=== PATIENT | male | born 1960 | race Caucasian/White ===

== ENCOUNTER 2017-07-18 23:15 | Emergency (ER) | payer MEDICAID ==
[~2017-07-18] VITALS: Ht 180.3 cm; Wt 95.4 kg
[2017-07-18] MEDS ORDERED: OXYcodone/APAP 5/325MG TABLET ONE (23:45)
[2017-07-18] MEDS ORDERED: LIDOCAINE 1%, 10ML ONE (23:56)
[2017-07-19] MEDS ORDERED: OXYcodone/APAP 5/325MG TABLET PO ONE
[2017-07-19] MEDS ORDERED: LIDOCAINE 1%, 10ML INFIL ONE
[2017-07-19] MEDS ORDERED: DIPH,PERTUSS(ACELL),TET VAC/PF 0.5 ML IM-VACC ONE ×2 (00:55→01:00)
[2017-07-19 01:19] VITALS: BP 125/91
[2017-07-20] MEDS ORDERED: SULF1TAB23 PO (23:40)
[2017-07-20] MEDS ORDERED: NAPR-856 PO (23:40)
== END 2017-07-19 01:20 | disposition home or self-care (01) ==
LOC: ED 07-19 01:05
DX: L03.012 Cellulitis of left finger (principal); L02.512 Cutaneous abscess of left hand; S69.82XA Other specified injuries of left wrist, hand and finger(s), initial encounter; X58.XXXA Exposure to other specified factors, initial encounter; Y93.89 Activity, other specified; Y92.69 Other specified industrial and construction area as the place of occurrence of the external cause; Y99.8 Other external cause status
CPT/HCPCS: 10060; 90471; 90715; 99284

== ENCOUNTER 2017-07-19 13:25 | Emergency (ER) | payer MEDICAID ==
[~2017-07-19] VITALS: Ht 180.3 cm; Wt 97.4 kg
[2017-07-19] MEDS ORDERED: KETOROLAC 30 MG/1 ML ONE (14:40)
[2017-07-19] MEDS ORDERED: KETOROLAC 30 MG/1 ML IM ONE (15:00)
[2017-07-19 15:15] VITALS: BP 142/95
[2017-07-20] MEDS ORDERED: NAPR-856 PO (23:40)
[2017-07-20] MEDS ORDERED: SULF1TAB23 PO (23:40)
== END 2017-07-19 15:16 | disposition home or self-care (01) ==
LOC: ED 15:10
DX: G89.11 Acute pain due to trauma (principal); M79.645 Pain in left finger(s); W22.8XXA Striking against or struck by other objects, initial encounter; Y93.89 Activity, other specified; Y92.89 Other specified places as the place of occurrence of the external cause; Y99.8 Other external cause status
CPT/HCPCS: 96372; 99283; J1885